=== PATIENT | female | born 1945 | race American Indian/Alaskan Native ===

== ENCOUNTER 2017-11-09 10:49 | Outpatient (CLI) | payer MEDICARE ==
--- NOTE | 2017-11-09 13:03 | Mammography Report ---
BILATERAL MAMMOGRAM with CAD: HISTORY: Cancer screening. Comparison study is dated November 04, 2016. FINDINGS: The breast tissue is heterogeneously dense, which could obscure detection of small masses (approximately 50%-75% glandular). No mass, distortion, suspicious calcification, or skin change is seen. IMPRESSION: Negative mammogram. There is no mammographic evidence of malignancy. RECOMMENDATION: Follow-up per ACS guidelines. BI-RADS CATEGORY: 1 = Negative ACR BI-RADS MAMMOGRAPHIC CODES: 0 = Needs additional imaging evaluation; 1 = Negative; 2 = Benign; 3 = Probably benign; 4 = Suspicious; 5 = Malignant; 6 = Known biopsy-proven malignancy COMMENT: 1. Dense breast tissue, i.e., adenosis, fibrocystic changes, etc., may obscure an underlying neoplasm. 2. Approximately 10% of cancers are not detected with mammography. 3. A negative mammography report should not delay biopsy if a clinically suspicious mass is present. COMMENT: Patient follow-up letters are generated in [employer].
== END 2017-11-09 10:50 | disposition home or self-care (01) ==
LOC: MAMMO 10:49
PROVIDERS: ATTEND Internal Medicine
DX: Z12.31 Encounter for screening mammogram for malignant neoplasm of breast (principal); I10 Essential (primary) hypertension
CPT/HCPCS: 77067; G0202

== ENCOUNTER 2018-05-31 09:00 | Outpatient (CLI) | payer MEDICARE ==
--- NOTE | 2018-05-31 13:10 | Mammography Report ---
BONE DEXA:05/31/18 09:00:00 CLINICAL: Postmenopausal. COMPARISON: 01/10/13 TECHNIQUE: Two site bone DEXA performed on an Hologic scanner. FINDINGS: The average BMD of the lumbar spine L1-L4 is 1.034g/cm squared with a T-score of -0.1 and a Z-score of us 1.4. This compares to 1.021g/cm squared on the last exam and represents a +1.3% change from the previous baseline. The average BMD of the left hip is 0.913g/cm squared with a T-score of -0.2 and a Z-score of +0.4. This compares to 0.984g/cm squared on the last exam and represents a -7.2% change from the previous baseline. IMPRESSION: 1. WHO classification: Normal with average fracture risk based on spine measurements. A slight improvement in spine BMD compared to the prior exam. 2. WHO classification: Normal with average fracture risk based on left hip measurements. A moderate decline in left hip BMD compared to the prior exam. RECOMMENDATION: Clinical correlation and routine screening. DEFINITIONS: BMD = Bone Mineral Density T-score = BMD related to mean peak bone mass of young adult (mean expressed in Standard Deviation) Z-score = Age matched BMD expressed in SD World Health Organization (WHO) Diagnostic Criteria Normal T-score > -1 SD Osteopenia T-score between -1 and -2.4 SD Osteoporosis T-score -2.5 SD or below NOTE: BMD is not the only risk factor for fracture; also consider factors such as the patient's age, risk of falling, previous osteoporotic fracture, family history of osteoporotic fractures, current smoker, and low body weight. Z-scores are not calculated if >80 years of age.
== END 2018-05-31 09:01 | disposition home or self-care (01) ==
LOC: MAMMO 09:00
PROVIDERS: ATTEND Internal Medicine
DX: M81.0 Age-related osteoporosis without current pathological fracture (principal); Z78.0 Asymptomatic menopausal state; F17.219 Nicotine dependence, cigarettes, with unspecified nicotine-induced disorders
CPT/HCPCS: 77080

== ENCOUNTER 2019-01-08 13:24 | Outpatient (CLI) | payer MEDICARE ==
--- NOTE | 2019-01-08 14:16 | Mammography Report ---
Bilateral mammogram: Compared to 11/09/17 and 11/04/16. CAD study utilized. Findings: Predominance adipose tissue bilaterally. Bilateral benign calcifications. No distinct mass or microcalcification. Benign axillary nodes. Impression: Benign findings. Annual followup recommended. BI-RADS CATEGORY: 2 = Benign ACR BI-RADS MAMMOGRAPHIC CODES: 0 = Needs additional imaging evaluation; 1 = Negative; 2 = Benign; 3 = Probably benign; 4 = Suspicious; 5 = Malignant; 6 = Known biopsy-proven malignancy COMMENT: 1. Dense breast tissue, i.e., adenosis, fibrocystic changes, etc., may obscure an underlying neoplasm. 2. Approximately 10% of cancers are not detected with mammography. 3. A negative mammography report should not delay biopsy if a clinically suspicious mass is present. COMMENT: Patient follow-up letters are generated in [employer].
== END 2019-01-08 13:25 | disposition home or self-care (01) ==
LOC: MAMMO 13:24
PROVIDERS: ATTEND Internal Medicine
DX: Z12.31 Encounter for screening mammogram for malignant neoplasm of breast (principal); I10 Essential (primary) hypertension; Z90.710 Acquired absence of both cervix and uterus
CPT/HCPCS: 77067

== ENCOUNTER 2021-04-20 09:03 | Outpatient (CLI) | payer MEDICARE ==
--- NOTE | 2021-04-20 10:17 | Mammography Report ---
DIGITAL SCREENING MAMMOGRAM WITH CAD, 04/20/2021 CLINICAL INFORMATION / INDICATION: Routine screening mammography. SCREENING MAMMO TECHNIQUE: Digital bilateral 2D mammography was obtained in the craniocaudal and mediolateral obliqu e projections. This examination was interpreted with the benefit of Computer-Aided Detection analysis . COMPARISON: 01/08/2019 and 03/19/2020. FINDINGS: Breast Density: There are scattered areas of fibroglandular density. There are benign scattered calcifications bilaterally. I see no evidence of a suspicious mass or arch itectural distortion. There is a small area of grouped calcifications in the left upper outer quadrant in the middle depth which are in a linear distribution and appear to be slowly increasing in number. IMPRESSION: Grouped calcifications in the left upper outer quadrant. Magnification views are recommen ded for further characterization. Follow up recommendation: Special View: Mag BI-RADS Category 0: Incomplete. Needs additional imaging evaluation and/or prior mammograms for rod rison. A "normal" or negative report should not discourage follow up or biopsy of a clinically significant f inding. A written summary of these findings will be mailed to the patient. The patient will be entered into a mammography reporting system which will generate a reminder letter for the patient's next appointmen t at the appropriate interval. The [employer] recommends yearly mammograms starting at age 40 and continuing as l jayleen as a woman is in good health. Breast MRI is recommended for women with an approximate 20-25% or greater lifetime risk of breast cancer, including women with a strong family history of breast or ova jennifer cancer or who have been treated for Hodgkin's disease. Signer Name: Wong Pope MD Signed: 04/20/2021 10:12 AM Workstation Name: [email or web address]
== END 2021-04-20 09:04 | disposition home or self-care (01) ==
LOC: MAMMO 09:03
PROVIDERS: ATTEND Internal Medicine
DX: Z12.31 Encounter for screening mammogram for malignant neoplasm of breast (principal); N64.89 Other specified disorders of breast
CPT/HCPCS: 77067

== ENCOUNTER 2021-04-30 09:10 | Outpatient (CLI) | payer MEDICARE ==
--- NOTE | 2021-04-30 12:28 | Mammography Report ---
DIGITAL DIAGNOSTIC MAMMOGRAM WITH CAD CONVENTIONAL, 04/30/2021 CLINICAL INFORMATION / INDICATION: Patient presents as a callback from screening mammogram for furthe r evaluation of left breast calcifications. ABNORMAL MAMMOGRAM TECHNIQUE: Digital left mammographic imaging was performed. Magnification views were obtained. This examination was interpreted with the benefit of Computer-aided Detection analysis. COMPARISON: Prior mammogram 04/20/2021 FINDINGS: Breast Density: There are scattered areas of fibroglandular density. As seen on recent screening mammogram, there is a 6 mm group of coarse heterogeneous calcifications s een in the 1:00 position of the left breast, middle depth. IMPRESSION: 1. A small group of coarse heterogeneous calcifications in the left breast are considered low suspici on for malignancy. However, because they have increased in number, stereotactic biopsy is recommended for confirmation. Follow up recommendation: Biopsy BI-RADS Category 4: Suspicious for Malignancy. A "normal" or negative report should not discourage follow up or biopsy of a clinically significant f inding. A written summary of these findings will be mailed to the patient. The patient will be entered into a mammography reporting system which will generate a reminder letter for the patient's next appointmen t at the appropriate interval. According to the [employer], yearly mammograms are recommended starting at age 40 and continuing as long as a woman is in good health. Breast MRI is recommended for women with an luis e roximately 20-25% or greater lifetime risk of breast cancer, including women with a strong family his tory of breast or ovarian cancer and women who have been treated for Hodgkin's disease. Signer Name: Fabiola Javier MD Signed: 04/30/2021 12:24 PM Workstation Name: [email or web address]
== END 2021-04-30 09:11 | disposition home or self-care (01) ==
LOC: MAMMO 09:10
PROVIDERS: ATTEND Internal Medicine
DX: R92.1 Mammographic calcification found on diagnostic imaging of breast (principal)

== ENCOUNTER 2022-07-12 07:36 | Outpatient (CLI) | payer MEDICARE ==
--- NOTE | 2022-07-13 10:03 | Mammography Report ---
DIGITAL SCREENING MAMMOGRAM WITH CAD, 07/12/2022 CLINICAL INFORMATION / INDICATION: Routine screening mammography. TECHNIQUE: Digital bilateral 2D mammography was obtained in the craniocaudal and mediolateral obliqu e projections. This examination was interpreted with the benefit of Computer-Aided Detection analysis . COMPARISON: 04/20/2021 FINDINGS: Breast Density: There are scattered areas of fibroglandular density. No dominant mass, suspicious calcifications, or architectural distortion in either breast. Benign diffuse bilateral calcifications are noted. Overall, no significant interval change. IMPRESSION: No mammographic evidence of malignancy. Follow up recommendation: Routine yearly screening mammogram. BI-RADS Category 2: BENIGN. A "normal" or negative report should not discourage follow up or biopsy of a clinically significant f inding. A written summary of these findings will be mailed to the patient. The patient will be entered into a mammography reporting system which will generate a reminder letter for the patient's next appointmen t at the appropriate interval. The [employer] recommends yearly mammograms starting at age 40 and continuing as l jayleen as a woman is in good health. Breast MRI is recommended for women with an approximate 20-25% or greater lifetime risk of breast cancer, including women with a strong family history of breast or ova jennifer cancer or who have been treated for Hodgkin's disease. Signer Name: Elsa Lee MD Signed: 07/13/2022 9:59 AM Workstation Name: [email or web address]
== END 2022-07-12 07:37 | disposition home or self-care (01) ==
LOC: MAMMO 07:36
PROVIDERS: ATTEND Internal Medicine
DX: Z12.31 Encounter for screening mammogram for malignant neoplasm of breast (principal); N64.89 Other specified disorders of breast
CPT/HCPCS: 77067